=== PATIENT | male | born 1955 | race Hispanic/Latino ===

== ENCOUNTER → 2018-05-30 | Emergency (ER) | payer BC, SELFPAY ==
[~2018-05-30] MED LIST: Aspirin Chewable 81 MG TAB ONE
[2018-05-30 15:10] LABS: #Basophils 0.1 thou/uL (0.0-0.2); #Eosinphils 0.3 thou/uL (0.0-0.7); #Lymphocytes 3.3 thou/uL (1.20-3.40); #Monocytes 0.8 thou/uL (0.11-0.59); #Neutrophils 4.5 thou/uL (1.40-6.50); %Basophils 1.2 % (0.0-1.0); %Eosinophils 3.3 % (0.0-10.0); %Lymphocytes 36.6 % (21.0-51.0); %Monocytes 8.6 % (0.0-10.0); %Neutrophils 50.4 % (42.0-75.0); Hemoglobin 15.6 g/dL (14.0-18.0); Mean Corpuscular HGB CONC 33.9 g/dL (32.0-36.0); Mean Corpuscular Hemoglobin 29.4 pg (27.0-31.0); Mean Corpuscular Volume 86.9 fL (78.0-98.0); Mean Platelet Volume 6.5 fL (7.4-10.4); Platelet Count 204 thou/uL (130-400); Red Blood Cell (RBC) Count 5.31 mill/uL (4.70-6.10); White Blood Cell (WBC) Count 8.9 thou/uL (4.8-10.8)
[2018-05-30 15:19] LABS: ALT (SGPT) 16 U/L (8-55); AST (SGOT) 12 U/L (5-34); Alkaline Phosphatase 119 U/L (40-150); Anion Gap 13 mmol/L (10-20); BUN (Urea Nitrogen) 16 mg/dL (8.4-25.7); Bilirubin, Total 0.4 mg/dL (0.2-1.2); Calc. Creatinine Clearance 0 mL/min (70-130); Calcium 9.4 mg/dL (7.8-10.44); Carbon Dioxide 25 mmol/L (23-31); Chloride 108 mmol/L (98-107); Estimated GFR-MDRD 59; Globulin 3.4 g/dL (2.4-3.5); Glucose 124 mg/dL (80-115); Potassium 4.3 mmol/L (3.5-5.1); Protein, Total 7.4 g/dL (5.8-8.1); Sodium 142 mmol/L (136-145)
[2018-05-30 15:37] LABS: CKMB 0.9 ng/mL (0-6.6)
--- NOTE | 2018-05-30 20:44 | RAD ---
PORTABLE CHEST: 05/30/18 An AP portable film at 1436 is presented with no prior films available for comparison. The heart is borderline in size given body habitus and AP projection. There is no congestive change o r pleural effusion. No lobar consolidation was seen. The trachea is midline. The bony structures show ed no acute change. There may be a small hiatal hernia centrally. IMPRESSION: Borderline cardiac size. POS: HOME
== END ==
LOC: EDBD → BURERS 14:39
DX: R06.00 Dyspnea, unspecified (principal); Z87.891 Personal history of nicotine dependence
CPT/HCPCS: 71045; 80053; 82553; 83880; 84484; 85025; 93005

== ENCOUNTER 2019-05-15 14:10 | Outpatient (CLI) | payer OTHER ==
--- NOTE | 2019-05-15 16:21 | RAD ---
RIGHT ANKLE THREE VIEWS: 05/15/19 Prominent swelling is seen, mainly medially. No fracture or joint space abnormality was seen. Some os teophytes appear to be present from the posterior part of the distal tibia, possibly from old trauma. A calcaneal spur is present. There is ossification at the insertion of the Achilles tendon. IMPRESSION: Soft tissue swelling and bony spurring as noted above. POS: HOME
--- NOTE | 2019-05-15 16:22 | RAD ---
RIGHT FOOT THREE VIEWS: 05/15/19 No fracture was seen. No acute periosteal reaction was noted. There is a little thickening of the cor bubba of the fourth metatarsal, but this does not appear acute. The patient has a very large prominent os cuboidale. A calcaneal spur is present. IMPRESSION: Chronic changes but no acute findings. POS: HOME
== END 2019-05-15 14:11 | disposition home or self-care (01) ==
LOC: BURRAD 14:10
PROVIDERS: ATTEND Nurse Practitioner Family
DX: M79.671 Pain in right foot (principal); M77.31 Calcaneal spur, right foot; M79.89 Other specified soft tissue disorders